=== PATIENT | female | born 1935 | race Hispanic/Latino ===

== ENCOUNTER 2021-04-25 13:42 | Outpatient (CLI) | payer MEDICARE, OTHER ==
--- NOTE | 2021-04-25 16:46 | Mammography Report ---
DIGITAL SCREENING MAMMOGRAM WITH CAD, 04/25/2021 CLINICAL INFORMATION / INDICATION: Routine screening mammography. SCREENING MAMMO WITH RIGHT IMPLANT Z12.31 TECHNIQUE: Digital left 2D mammography was obtained in the craniocaudal and mediolateral oblique pro jections. This examination was interpreted with the benefit of Computer-Aided Detection analysis. COMPARISON: 01/07/2017 through 04/04/2020. FINDINGS: Breast Density: There are scattered areas of fibroglandular density. No dominant mass, suspicious calcifications, or architectural distortion in the left breast. There are moderate benign breast arterial calcifications. IMPRESSION: No mammographic evidence of malignancy. Follow up recommendation: Routine yearly BI-RADS Category 2: Benign. A "normal" or negative report should not discourage follow up or biopsy of a clinically significant f inding. A written summary of these findings will be mailed to the patient. The patient will be entered into a mammography reporting system which will generate a reminder letter for the patient's next appointmen t at the appropriate interval. The [employer] recommends yearly mammograms starting at age 40 and continuing as l howie as a woman is in good health. Breast MRI is recommended for women with an approximate 20-25% or greater lifetime risk of breast cancer, including women with a strong family history of breast or ova vanessa cancer or who have been treated for Hodgkin's disease. Signer Name: nAdrés Duron MD Signed: 04/25/2021 4:41 PM Workstation Name: [employer] [place] [id number]
== END 2021-04-25 13:43 | disposition home or self-care (01) ==
LOC: SPVWC 13:42
PROVIDERS: ATTEND Surgery
DX: Z12.31 Encounter for screening mammogram for malignant neoplasm of breast (principal)